=== PATIENT | male | born 1970 | race Caucasian/White ===

== ENCOUNTER 2023-10-26 16:50 | Emergency (ER) | payer MEDICAID ==
[~2023-10-26] VITALS: Ht 177.8 cm; Wt 90.0 kg
[2023-10-26] MEDS ORDERED: cloNIDine 0.1 mg tablet PO ONE (17:05)
[2023-10-26 18:24] LABS: APTT 27 SECONDS (22-32); INR 1.1 INR; PROTHROMBIN TIME 11.6 SECONDS (9.0-12.0)
[2023-10-26 18:29] LABS: BASOPHILS # (AUTO) 0.1 X10'3 (0-0.2); BASOPHILS % (AUTO) 0.6 % (0-1); EOSINOPHILS # (AUTO) 0.3 X10'3 (0-0.9); EOSINOPHILS % (AUTO) 3.3 % (0-6); HEMATOCRIT 47.2 % (42.0-52.0); HEMOGLOBIN 16.8 g/dl (14.0-17.9); LYMPHOCYTES # (AUTO) 2.3 X10'3 (1.1-4.8); LYMPHOCYTES % (AUTO) 23.1 % (21-51); MEAN CORPUSCULAR HGB CONC 35.6 g/dL (33.0-36.5); MEAN CORPUSCULAR VOLUME 92.5 FL (78-98); MEAN PLATELET VOLUME 8.5 FL (7.4-10.4); MONOCYTES # (AUTO) 0.9 X10'3 (0-0.9); NEUTROPHILS # (AUTO) 6.4 X10'3 (1.8-7.7); PLATELET COUNT 206 X10'3 (140-440); RED BLOOD COUNT 5.11 X10'6 (4.70-6.10); RED CELL DISTRIBUTION WIDTH 12.7 % (11.5-14.5)
[2023-10-26 18:47] LABS: ALANINE AMINOTRANSFERASE 97 U/L (12-78); ALBUMIN 4.5 G/DL (3.4-5.0); ALBUMIN/GLOBULIN RATIO 1.3 (1.1-1.5); ALKALINE PHOSPHATASE 72 IU/L (46-116); ANION GAP 11 (8-16); ASPARTATE AMINO TRANSFERASE 80 U/L (10-37); BILIRUBIN,TOTAL 0.9 MG/DL (0.1-1.0); BLOOD UREA NITROGEN 8 MG/DL (7-18); BUN/CREATININE RATIO 9.6 (10.0-20.0); CALCIUM 9.2 MG/DL (8.5-10.1); CHLORIDE 101 MMOL/L (99-107); CREATININE 0.83 MG/DL (0.60-1.10); GLUCOSE 153 MG/DL (70-104); POTASSIUM 3.2 MMOL/L (3.5-5.1); SODIUM 140 MMOL/L (135-145); TOTAL CARBON DIOXIDE 28.5 MMOL/L (24-32); TOTAL PROTEIN 8.1 G/DL (6.4-8.2); eCRCL 105 ML/MIN; eGFR > 90 ML/MIN
[2023-10-26 18:51] LABS: FREE T4 (FREE THYROXINE) 0.94 NG/DL (0.73-1.40); PRO BRAIN NATRIURETIC PEPTIDE 105 PG/ML (0-125); THYROID STIMULATING HORMONE 2.26 ulU/ml (0.34-4.50)
[2023-10-26] MEDS: hydrALAZINE 20mg/ml inj. IV ONE (19:16)
[2023-10-26] MEDS ORDERED: LOSA-415 PO (20:10)
[2023-10-26 20:25] VITALS: BP 170/104; PULSE 66; RESP 17; TEMP 98.2; O2SAT 95
== END 2023-10-26 20:27 | disposition home or self-care (01) ==
LOC: ER 16:51
DX: I10 Essential (primary) hypertension (principal); E87.6 Hypokalemia; Z88.8 Allergy status to other drugs, medicaments and biological substances
CPT/HCPCS: 36415; 71045; 80053; 83880; 84439; 84443; 84484; 85025; 85610; 85730; 93005; 96374; 99285; J0360

== ENCOUNTER 2023-11-08 08:40 | Outpatient (CLI) | payer MEDICAID ==
[~2023-11-08 08:40] MED LIST: LOSA-415 PO
== END 2023-11-08 23:59 | disposition home or self-care (01) ==
LOC: VAS 08:40
PROVIDERS: ATTEND Family Medicine
DX: I10 Essential (primary) hypertension (principal)
CPT/HCPCS: 93975

== ENCOUNTER 2024-02-23 08:16 | Emergency (ER) | payer MEDICAID ==
[~2024-02-23] VITALS: Ht 177.8 cm; Wt 93.8 kg
[2024-02-23 08:50] LABS: BILIRUBIN,URINE NEGATIVE (Neg); CLARITY,URINE CLEAR (Clear); COLOR,URINE YELLOW (Yellow); GLUCOSE, URINE 500 mg/dl (Neg); KETONES,URINE NEGATIVE (Neg); LEUKOCYTE ESTERASE ,URINE NEGATIVE (Neg); NITRITES, URINE NEGATIVE (Neg); OCCULT BLOOD,URINE NEGATIVE (Neg); PROTEIN,URINE NEGATIVE (Neg); UROBILINOGEN,URINE 0.2 E.U/dL (0.2-1.0)
[2024-02-23 08:54] LABS: UA COLLECTION TYPE CLN CATCH MIDSTREAM
[2024-02-23] MEDS ORDERED: iohexol 300mg/ml 100ml inj. ONE (09:34)
[2024-02-23 09:36] LABS: BASOPHILS % (AUTO) 0.7 % (0-1); EOSINOPHILS # (AUTO) 0.1 X10'3 (0-0.9); EOSINOPHILS % (AUTO) 1.4 % (0-6); HEMATOCRIT 38.8 % (42.0-52.0); HEMOGLOBIN 13.8 g/dl (14.0-17.9); LYMPHOCYTES # (AUTO) 1.7 X10'3 (1.1-4.8); LYMPHOCYTES % (AUTO) 24.9 % (21-51); MEAN CORPUSCULAR HEMOGLOBIN 32.6 PG (27.0-31.0); MEAN CORPUSCULAR HGB CONC 35.6 g/dL (33.0-36.5); MEAN CORPUSCULAR VOLUME 91.8 FL (78-98); MEAN PLATELET VOLUME 8.4 FL (7.4-10.4); MONOCYTES # (AUTO) 0.9 X10'3 (0-0.9); MONOCYTES % (AUTO) 12.4 % (2-12); NEUTROPHILS # (AUTO) 4.2 X10'3 (1.8-7.7); NEUTROPHILS % (AUTO) 60.6 % (42-75); PLATELET COUNT 149 X10'3 (140-440); RED BLOOD COUNT 4.22 X10'6 (4.70-6.10); RED CELL DISTRIBUTION WIDTH 12.4 % (11.5-14.5)
[2024-02-23 09:54] LABS: ALANINE AMINOTRANSFERASE 64 U/L (12-78); ALBUMIN/GLOBULIN RATIO 1.3 (1.1-1.5); ALKALINE PHOSPHATASE 91 IU/L (46-116); ANION GAP 12 (8-16); ASPARTATE AMINO TRANSFERASE 49 U/L (10-37); BLOOD UREA NITROGEN 14 MG/DL (7-18); BUN/CREATININE RATIO 11.6 (10.0-20.0); CALCIUM 9.4 MG/DL (8.5-10.1); CHLORIDE 93 MMOL/L (99-107); CREATININE 1.21 MG/DL (0.60-1.10); GLUCOSE 237 MG/DL (70-104); LIPASE 79 U/L (16-77); SODIUM 133 MMOL/L (135-145); TOTAL CARBON DIOXIDE 27.8 MMOL/L (24-32); TOTAL PROTEIN 7.2 G/DL (6.4-8.2); eCRCL 71 ML/MIN; eGFR 62 ML/MIN
[2024-02-23 09:57] LABS: POTASSIUM 2.5 MMOL/L (3.5-5.1)
[2024-02-23] MEDS: POTASSIUM CHLORIDE 20 MEQ/15 ML oral solution PO SCH (10:36)
[2024-02-23] MEDS: ketorolac trometh 30MG/ML vial 30 MG/ML VIAL IM ONE (10:59)
[2024-02-23] MEDS ORDERED: FLO0.4C PO (11:49)
[2024-02-23] MEDS: LidoCAINE 2% Topical Jelly 11mL syringe (UROJET) TOP ONE (13:14)
[2024-02-23 13:58] VITALS: BP 154/76; PULSE 54; RESP 16; TEMP 98.8; O2SAT 96
== END 2024-02-23 14:00 | disposition home or self-care (01) ==
LOC: ER 08:16
DX: N13.9 Obstructive and reflux uropathy, unspecified (principal); Z88.8 Allergy status to other drugs, medicaments and biological substances; Z79.899 Other long term (current) drug therapy; Z87.891 Personal history of nicotine dependence
CPT/HCPCS: 36415; 51702; 74177; 80053; 81003; 83690; 85025; 96372; 99285; J1885; Q9967; A4314

== ENCOUNTER 2024-02-24 18:31 | Emergency (ER) | payer MEDICAID ==
[~2024-02-24] VITALS: Ht 177.8 cm; Wt 94.0 kg
[~2024-02-24 18:31] MED LIST changes: +FLO0.4C PO; -LOSA-415 PO
[2024-02-24 20:00] VITALS: BP 157/93; PULSE 80; RESP 16; TEMP 98.6; O2SAT 97
== END 2024-02-24 20:02 | disposition home or self-care (01) ==
LOC: ER 18:32
DX: N13.8 Other obstructive and reflux uropathy (principal); Z88.8 Allergy status to other drugs, medicaments and biological substances; Z79.899 Other long term (current) drug therapy
CPT/HCPCS: 99281; J7030

== ENCOUNTER 2024-02-25 22:22 | Emergency (ER) | payer MEDICAID ==
[2024-02-26] MEDS ORDERED: POTA-207 PO (09:58)
[2024-02-26] MEDS ORDERED: CEPH250T PO (10:04)
== END 2024-02-25 23:34 | disposition left against medical advice (07) ==
LOC: ER 22:23
DX: Z00.00 Encounter for general adult medical examination without abnormal findings (principal); Z53.21 Procedure and treatment not carried out due to patient leaving prior to being seen by health care provider

== ENCOUNTER 2024-02-26 08:07 | Emergency (ER) | payer MEDICAID ==
[~2024-02-26] VITALS: Ht 177.8 cm; Wt 92.3 kg
[2024-02-26 08:35] LABS: BASOPHILS % (AUTO) 0.5 % (0-1); EOSINOPHILS # (AUTO) 0.1 X10'3 (0-0.9); EOSINOPHILS % (AUTO) 1.2 % (0-6); HEMATOCRIT 39.1 % (42.0-52.0); HEMOGLOBIN 13.7 g/dl (14.0-17.9); LYMPHOCYTES # (AUTO) 1.2 X10'3 (1.1-4.8); LYMPHOCYTES % (AUTO) 17.3 % (21-51); MEAN CORPUSCULAR HEMOGLOBIN 32.7 PG (27.0-31.0); MEAN CORPUSCULAR HGB CONC 35.1 g/dL (33.0-36.5); MEAN CORPUSCULAR VOLUME 92.9 FL (78-98); MEAN PLATELET VOLUME 8.2 FL (7.4-10.4); MONOCYTES # (AUTO) 0.8 X10'3 (0-0.9); MONOCYTES % (AUTO) 11.1 % (2-12); NEUTROPHILS # (AUTO) 4.8 X10'3 (1.8-7.7); NEUTROPHILS % (AUTO) 69.9 % (42-75); PLATELET COUNT 161 X10'3 (140-440); RED CELL DISTRIBUTION WIDTH 12.6 % (11.5-14.5); WHITE BLOOD COUNT 6.9 X10'3 (4.5-11.0)
[2024-02-26] MEDS: potassium Cl 20 mEq SR tablet PO ONE (08:37)
[2024-02-26] MEDS: aspirin 81mg tab.chew PO ONE (08:39)
[2024-02-26] MEDS: magnesium oxide 400mg tablet PO ONE (08:39)
[2024-02-26 08:44] LABS: APTT 25 SECONDS (22-32); INR 1.1 INR; PROTHROMBIN TIME 11.4 SECONDS (9.0-12.0)
[2024-02-26 08:47] LABS: URINE AMPHETAMINE SCREEN NEGATIVE (Neg); URINE BARBITUATE SCREEN NEGATIVE (Neg); URINE BENZODIAZEPINES SCREEN NEGATIVE (Neg); URINE CANNABINOID SCREEN NEGATIVE (Neg); URINE COCAINE SCREEN NEGATIVE (Neg); URINE METHADONE SCREEN NEGATIVE (Neg); URINE OPIATE SCREEN NEGATIVE (Neg); URINE PHENCYCLIDINE SCREEN NEGATIVE (Neg)
[2024-02-26 08:48] LABS: BILIRUBIN,URINE NEGATIVE (Neg); CLARITY,URINE SLIGHTLY CLOUDY (Clear); COLOR,URINE YELLOW (Yellow); GLUCOSE, URINE 250 mg/dl (Neg); KETONES,URINE NEGATIVE (Neg); LEUKOCYTE ESTERASE ,URINE TRACE (Neg); NITRITES, URINE NEGATIVE (Neg); OCCULT BLOOD,URINE MODERATE (Neg); PH,URINE 6.5 (4.8-8.0); PROTEIN,URINE NEGATIVE (Neg); UROBILINOGEN,URINE 0.2 E.U/dL (0.2-1.0)
[2024-02-26 08:54] LABS: UA COLLECTION TYPE FOLEY CATH
[2024-02-26 08:55] LABS: SQUAMOUS EPITHELIAL CELL,UR FEW /LPF (FEW)
[2024-02-26 08:56] LABS: BACTERIA,URINE FEW /HPF (Neg); WBC,URINE 0-4 /HPF (0-4)
[2024-02-26 08:56] LABS: ALBUMIN 3.9 G/DL (3.4-5.0); ANION GAP 14 (8-16); BLOOD UREA NITROGEN 12 MG/DL (7-18); BUN/CREATININE RATIO 10.4 (10.0-20.0); CALCIUM 9.3 MG/DL (8.5-10.1); CHLORIDE 97 MMOL/L (99-107); CREATININE 1.15 MG/DL (0.60-1.10); GLUCOSE 268 MG/DL (70-104); MAGNESIUM 2.1 MG/DL (1.5-2.4); PRO BRAIN NATRIURETIC PEPTIDE 304 PG/ML (0-125); SODIUM 139 MMOL/L (135-145); TOTAL CARBON DIOXIDE 28.2 MMOL/L (24-32); eCRCL 75 ML/MIN; eGFR 66 ML/MIN
[2024-02-26] MEDS: normal saline 1000ml 1,000 ML IV ONE (09:00)
[2024-02-26 09:03] LABS: ETHANOL < 10 MG/DL (<10); POTASSIUM 2.6 MMOL/L (3.5-5.1)
[2024-02-26] MEDS: potassium CL 10mEq/100ml bag 100 ML IV ONE (09:37)
[2024-02-26] MEDS: acetaminophen 325mg tablet PO ONE (09:37)
[2024-02-26] MEDS ORDERED: POTA-207 PO (09:58)
[2024-02-26] MEDS ORDERED: CEPH250T PO (10:04)
[2024-02-26] MEDS: CefTRIAXone 2gm/D5W 50ml BAG 50 ML IV ONE (10:40)
[2024-02-26 10:42] VITALS: BP 144/86; PULSE 53; RESP 18; O2SAT 94
[2024-02-26 11:39] VITALS: TEMP 98.6
[2024-02-27] MEDS ORDERED: CefTRIAXone 2gm/D5W 50ml BAG 50 ML IV SCH (08:00)
== END 2024-02-26 11:22 | disposition home or self-care (01) ==
LOC: ER 08:08
DX: T83.511A Infection and inflammatory reaction due to indwelling urethral catheter, initial encounter (principal); N39.0 Urinary tract infection, site not specified; E87.6 Hypokalemia; R00.2 Palpitations; I10 Essential (primary) hypertension; E11.9 Type 2 diabetes mellitus without complications; G89.29 Other chronic pain; M54.9 Dorsalgia, unspecified; G47.30 Sleep apnea, unspecified; Z86.73 Personal history of transient ischemic attack (TIA), and cerebral infarction without residual deficits; Z79.2 Long term (current) use of antibiotics; Z79.899 Other long term (current) drug therapy; Z88.8 Allergy status to other drugs, medicaments and biological substances
CPT/HCPCS: 36415; 71045; 80048; 80305; 80320; 81001; 83735; 83880; 84484; 85025; 85610; 85730; 87088; 93005; 96361; 96365; 96367; 99285; J0696; J3480; J7030

== ENCOUNTER 2024-03-26 19:00 | Emergency (ER) | payer MEDICAID ==
[~2024-03-26] VITALS: Ht 177.8 cm; Wt 93.2 kg
[~2024-03-26 19:00] MED LIST changes: +CEPH250T PO
[2024-03-26 19:05] VITALS: TEMP 98.8
[2024-03-26 19:34] LABS: BASOPHILS % (AUTO) 0.5 % (0-1); EOSINOPHILS # (AUTO) 0.1 X10'3 (0-0.9); EOSINOPHILS % (AUTO) 1.4 % (0-6); LYMPHOCYTES # (AUTO) 1.5 X10'3 (1.1-4.8); LYMPHOCYTES % (AUTO) 18.5 % (21-51); MEAN CORPUSCULAR HEMOGLOBIN 32.5 PG (27.0-31.0); MEAN CORPUSCULAR HGB CONC 34.9 g/dL (33.0-36.5); MEAN CORPUSCULAR VOLUME 93.3 FL (78-98); MEAN PLATELET VOLUME 8.3 FL (7.4-10.4); MONOCYTES # (AUTO) 0.9 X10'3 (0-0.9); MONOCYTES % (AUTO) 10.4 % (2-12); NEUTROPHILS # (AUTO) 5.7 X10'3 (1.8-7.7); NEUTROPHILS % (AUTO) 69.2 % (42-75); PLATELET COUNT 174 X10'3 (140-440); RED BLOOD COUNT 4.61 X10'6 (4.70-6.10); RED CELL DISTRIBUTION WIDTH 12.5 % (11.5-14.5); WHITE BLOOD COUNT 8.3 X10'3 (4.5-11.0)
[2024-03-26 19:41] LABS: BILIRUBIN,URINE NEGATIVE (Neg); COLOR,URINE YELLOW (Yellow); GLUCOSE, URINE >=1000 mg/dl (Neg); KETONES,URINE TRACE mg/dl (Neg); LEUKOCYTE ESTERASE ,URINE NEGATIVE (Neg); NITRITES, URINE NEGATIVE (Neg); OCCULT BLOOD,URINE NEGATIVE (Neg); PH,URINE 5.5 (4.8-8.0); PROTEIN,URINE NEGATIVE (Neg); UROBILINOGEN,URINE 0.2 E.U/dL (0.2-1.0)
[2024-03-26 19:47] LABS: ALANINE AMINOTRANSFERASE 50 U/L (12-78); ALBUMIN 4.4 G/DL (3.4-5.0); ALBUMIN/GLOBULIN RATIO 1.2 (1.1-1.5); ALKALINE PHOSPHATASE 112 IU/L (46-116); ANION GAP 9 (8-16); ASPARTATE AMINO TRANSFERASE 26 U/L (10-37); BILIRUBIN,TOTAL 0.5 MG/DL (0.1-1.0); BLOOD UREA NITROGEN 18 MG/DL (7-18); BUN/CREATININE RATIO 16.8 (10.0-20.0); CALCIUM 10.2 MG/DL (8.5-10.1); CHLORIDE 98 MMOL/L (99-107); CREATININE 1.07 MG/DL (0.60-1.10); GLUCOSE 359 MG/DL (70-104); LIPASE 82 U/L (16-77); POTASSIUM 3.9 MMOL/L (3.5-5.1); SODIUM 135 MMOL/L (135-145); TOTAL CARBON DIOXIDE 28.1 MMOL/L (24-32); eCRCL 81 ML/MIN; eGFR 72 ML/MIN
[2024-03-26 19:49] LABS: UA COLLECTION TYPE CLN CATCH MIDSTREAM
[2024-03-26 19:52] LABS: CLARITY,URINE SLIGHTLY CLOUDY (Clear); RBC,URINE 0-2 /HPF (0-2)
[2024-03-26 19:53] LABS: BACTERIA,URINE FEW /HPF (Neg); SQUAMOUS EPITHELIAL CELL,UR FEW /LPF (FEW)
[2024-03-26 19:54] LABS: WBC CLUMPS,URINE FEW /HPF (NEGATIVE)
[2024-03-26] MEDS: normal saline 1000ml 1,000 ML IV ONE (20:38)
[2024-03-26 20:46] VITALS: BP 139/99; PULSE 64; RESP 16; O2SAT 97
[2024-03-26] MEDS: insulin regular, human 10 units/0.1 ml syringe SQ ONE (20:52)
== END 2024-03-26 21:29 | disposition home or self-care (01) ==
LOC: ER 19:01
DX: E11.65 Type 2 diabetes mellitus with hyperglycemia (principal); R10.12 Left upper quadrant pain; G47.30 Sleep apnea, unspecified; G89.29 Other chronic pain; I10 Essential (primary) hypertension; Z88.8 Allergy status to other drugs, medicaments and biological substances; Z88.5 Allergy status to narcotic agent; Z79.2 Long term (current) use of antibiotics; Z79.899 Other long term (current) drug therapy; Z86.73 Personal history of transient ischemic attack (TIA), and cerebral infarction without residual deficits; Z87.440 Personal history of urinary (tract) infections
CPT/HCPCS: 36415; 74176; 80053; 81001; 83690; 85025; 87088; 87186; 96360; 99284; J7030; 87077; J1815

== ENCOUNTER 2024-07-21 07:06 | Day surgery (SDC) | payer MEDICAID ==
[~2024-07-21] VITALS: Ht 177.8 cm; Wt 99.0 kg
[~2024-07-21 07:06] MED LIST changes: +ASPI-1265 PO; +CARV-50 PO; -CEPH250T PO; +CLON1PAT42 TD; +DILT-14 PO; +GLIM4TAB7 PO; +HYDR-3965 PO; +HYDR25TA5 PO; +HYDR25TA90 PO; +LOSARTAN PO; +PIOG45TA5 PO; +POTA-188 PO; +PRAZ1CAP5 PO; +QUET-1 PO; +SIMV-341 PO; +SPIR25TA5 PO
[2024-07-21 07:28] VITALS: BP 141/88; PULSE 56; RESP 12; TEMP 98.8
[2024-07-21] MEDS ORDERED: propofol 10mg/ml 20ml vial IV ONE (09:00)
[2024-07-21 09:25] VITALS: BP 144/88; PULSE 63; RESP 15; O2SAT 99
[2024-07-21 09:30] VITALS: BP 158/92; PULSE 51; RESP 11; O2SAT 100
[2024-07-21 09:40] VITALS: BP 152/94; PULSE 98; RESP 51; O2SAT 98
[2024-07-21 09:50] VITALS: BP 163/92; PULSE 52; RESP 16; O2SAT 95
[2024-07-21 10:03] VITALS: BP 172/97; PULSE 63; RESP 13; O2SAT 99
== END 2024-07-21 10:05 | disposition home or self-care (01) ==
LOC: GI LAB 07:06
PROVIDERS: ATTEND Internal Medicine Gastroenterology
DX: Z12.11 Encounter for screening for malignant neoplasm of colon (principal); K57.30 Diverticulosis of large intestine without perforation or abscess without bleeding; I10 Essential (primary) hypertension; E11.9 Type 2 diabetes mellitus without complications; N40.0 Benign prostatic hyperplasia without lower urinary tract symptoms; G47.33 Obstructive sleep apnea (adult) (pediatric); Z87.442 Personal history of urinary calculi; Z87.891 Personal history of nicotine dependence; Z88.5 Allergy status to narcotic agent; Z88.1 Allergy status to other antibiotic agents; Z79.82 Long term (current) use of aspirin; Z79.891 Long term (current) use of opiate analgesic; Z79.899 Other long term (current) drug therapy; Z98.890 Other specified postprocedural states
CPT/HCPCS: 45378; 82948; J2704; J7030; Z7512